=== PATIENT | female | born 1950 | race Caucasian/White ===

== ENCOUNTER 2017-11-15 13:34 | Inpatient (IN) | payer OTHER ==
[2017-11-15 16:18] VITALS: BMI 24.7
--- NOTE | 2017-11-15 17:42 | HP ---
COWS - Scale Resting Pulse: 0= [place] 80 or Below Sweatin= Chills/Flushing Restless Observation: 1= Difficult to Sit Still Pupil Size: 1= Pupils >than Normal Bone or Joint Aches: 1= Mild Discomfort Runny Nose/ Eye Tearin= Nasal Congestion GI Upset > 30mins: 2= Nausea/Diarrhea Tremor Observation: 1= Tremor [place], Not Seen Yawning Observation: 1= 1-2x During Session Anxiety or Irritability: 2=Irritable/Anxious Goose Flesh Skin: 3=Piloerection COWS Score: 14 Admission [facility] Chief Complaint: heroin withdrawal sx Allergies/Adverse Reactions: Allergies Allergy/AdvReac Type Severity Reaction Status Date / Time No Known Allergies Allergy Verified 11/15/17 17:26 History of Present Illness: 67 yo f wit h/o herion use disorder admitted for [facility] detoxification because fo heroin withdrawl sx. PMHx htn on meds, no si at this time, no h/o seizures, no DTs no other illicit or alcohol use. Exam Limitations: No Limitations - Ebola screening Have you traveled outside of the country in the last 21 days: No (N) Have you had contact with anyone from an Ebola affected area: No Have you been sick,other than usual withdrawal symptoms: No Do you have a fever: No - Review of Systems Constitutional: Chills, Diaphoresis, Night Sweats, Changes in sleep, Unintentional Wgt. Loss EENT: reports: Tearing, Nose Congestion Respiratory: reports: No Symptoms reported Cardiac: reports: No Symptoms Reported GI: reports: Constipated, Nausea, Poor Appetite, Poor Fluid Intake, Indigestion , Abdominal cramping : reports: No Symptoms Reported Musculoskeletal: reports: Back Pain, Joint Pain (arthritis and withdrawal s), Muscle Pain Integumentary: reports: Flushing, Sweating Neuro: reports: Headache, Numbness, Tingling, Tremors Endocrine: reports: Increased Thirst Hematology: reports: No Symptoms Reported Psychiatric: reports: Judgement Intact, Mood/Affect Appropiate, Orientated x3, Anxious, Depressed Other Systems: Reviewed and Negative Patient History - Patient Medical History Hx Anemia: No Hx Asthma: No Hx Chronic Obstructive Pulmonary Disease (COPD): No Hx Cancer: No Hx Cardiac Disorders: No Hx Congestive Heart Failure: No Hx Hypertension: Yes Hx Hypercholesterolemia: No Hx Pacemaker: No HX Cerebrovascular Accident: No Hx Seizures: No Hx Dementia: No Hx Diabetes: No Hx Gastrointestinal Disorders: No Hx Liver Disease: No Hx Genitourinary Disorders: No Hx Sexually Transmitted Disorders: No Hx Renal Disease (ESRD): No Hx Thyroid Disease: No Hx Human Immunodeficiency Virus (HIV): No Hx Hepatitis C: No Hx Depression: Yes Hx Suicide Attempt: No (no SI) Hx Bipolar Disorder: No Hx Schizophrenia: No - Patient Surgical History Past Surgical History: No Hx Neurologic Surgery: No Hx Cataract Extraction: No Hx Cardiac Surgery: No Hx Lung Surgery: No Hx Breast Surgery: No Hx Breast Biopsy: No Hx Abdominal Surgery: No Hx Appendectomy: No Hx Cholecystectomy: No Hx Genitourinary Surgery: No Hx Section: No Hx Orthopedic Surgery: No Hx Hysterectomy: No Anesthesia Reaction: No - PPD History Previous Implant?: Yes Documented Results: Negative w/o proof Implanted On Prior R Admission?: No PPD to be Administered?: Yes - Reproductive History Patient is a Female of Child Bearing Age (11 -55 yrs old): No Patient : No - Smoking Cessation Smoking history: Current every day smoker Have you smoked in the past 12 months: Yes Aproximately how many cigarettes per day: 30 Hx Chewing Tobacco Use: No Initiated information on smoking cessation: Yes 'Breaking Loose' booklet given: 11/15/17 - Substance & Tx. History Hx Alcohol Use: No Hx Substance Use: Yes Substance Use Type: Heroin Hx Substance Use Treatment: Yes (detox 17 years ago, sober x17 years) - Substances Abused Heroin Route: Inhalation Frequency: Daily Amount used: 10 bags Age of first use: 17 Date of Last Use: 11/15/17 Family Disease History - Family Disease History Family Disease History: Other: Mother (dementia) Admission Physical Exam BHS - Vital Signs Vital Signs: Vital Signs - 24 hr 11/15/17 16:13 Temperature 96.6 F L Pulse Rate 68 Respiratory 18 Rate Blood Pressure 136/74 - Physical General Appearance: Yes: Nourished, Appropriately Dressed, Disheveled, Mild Distress, Thin, Tremorous, Irritable, Sweating, Anxious HEENTM: Yes: EOMI, Hearing grossly Normal, Normocephalic, Normal Voice, GRICELDA, Pharynx Normal, Nasal Congestion, Rhinorrhea Respiratory: Yes: Within Normal Limits, Chest Non-Tender, Lungs Clear, Normal Breath Sounds, No Respiratory Distress, No Accessory Muscle Use Neck: Yes: Within Normal Limits, No masses,lesions,Nodules, Supple, Trachea in good position Breast: Yes: Breast Exam Deferred Cardiology: Yes: Within Normal Limits, Regular Rhythm, Regular Rate, S1, S2 Abdominal: Yes: Within Normal Limits, Normal Bowel Sounds, Non Tender, Flat, Increased Bowel Sounds Genitourinary: Yes: Within Normal Limits Back: Yes: Within Normal Limits, Normal Inspection Musculoskeletal: Yes: full range of Motion, Gait Steady, Pelvis Stable, Back pain, Muscle Pain Extremities: Yes: Normal Capillary Refill, Normal Inspection, Normal Range of Motion, Tremors Neurological: Yes: pole incisor operator II-XII NML intact, Fully Oriented, Alert, Motor Strength 5/5, Normal Response, Depressed Affect Integumentary: Yes: Normal Color, Warm, Diaphoresis, Moist Lymphatic: Yes: Within Normal Limits - Addiitonal Findings: rose sx - Diagnostic (1) Anxiety Current Visit: Yes Status: Acute (2) Overdose Current Visit: Yes Status: Acute (3) Dehydration Current Visit: Yes Status: Acute (4) Depression Current Visit: Yes Status: Acute (5) Essential hypertension Current Visit: Yes Status: Acute (6) Insomnia Current Visit: Yes Status: Acute (7) Opioid dependence with withdrawal Current Visit: Yes Status: Acute Cleared for Admission [facility] - Detox or Rehab [facility] Level of Care: Medically Managed Detox Regimen/Protocol: Methadone [facility] Breath Alcohol Content Breath Alcohol Content: 0 Urine Pregancy Test - Result Urine Test Results: Negative- NO Line Present Urine Drug Screen - Results Drug Screen Negative: No Urine Drug Screen Results: OPI-Opiates, OXY-Oxycodone
[2017-11-15] MEDS ORDERED: guaiFENesin/D-METHORPHAN HB 10 ML UNIT-DOSE CUPS PO PRN (17:47)
[2017-11-15] MEDS ORDERED: MAG HYDROX/AL HYDROX/SIMETH 30 ML UNIT-DOSE CUP PO PRN (17:47)
[2017-11-15] MEDS ORDERED: NICOTINE POLACRILEX 4 MG GUM BUC PRN (17:47)
[2017-11-15] MEDS ORDERED: MAGNESIUM HYDROX 2400MG/30ML ORAL SUSPENSION 30 ML CUP PO PRN (17:47)
[2017-11-15] MEDS ORDERED: P-EPHED 60MG/TRIPROLIDI 2.5MG TABLET PO PRN (17:47)
[2017-11-15] MEDS ORDERED: MENTHOL/PHENOL 1 EACH UD MM PRN (17:47)
[2017-11-15] MEDS ORDERED: MAGNESIUM CITRATE 300 ML BOTTLE PO PRN (17:47)
[2017-11-15] MEDS ORDERED: LOPERAMIDE HCL 2 MG CAPSULE PO PRN (17:47)
[2017-11-15] MEDS ORDERED: METHADONE HCL 10 MG TABLET (FOR DETOX USE ONLY) PO ONE ×2 (18:00→23:00)
[2017-11-15] MEDS: NICOTINE 21 MG/24 HOURS TOPICAL PATCH TD SCH (19:50)
[2017-11-15] MEDS: THIAMINE HCL 100 MG TABLET (FP) PO SCH (22:18)
[2017-11-15] MEDS: DOCUSATE SODIUM 100 MG CAPSULE (FP) PO SCH (22:18)
[2017-11-15] MEDS: diazePAM 5 MG TABLET PO PRN (22:19)
[2017-11-15 23:44] LABS: URINE APPEARANCE CLEAR; URINE BILIRUBIN NEGATIVE (NEGATIVE); URINE BLOOD NEGATIVE (NEGATIVE); URINE COLOR YELLOW; URINE GLUCOSE (UA) NEGATIVE (NEGATIVE); URINE KETONE NEGATIVE (NEGATIVE); URINE LEUK ESTERASE TRACE (NEGATIVE); URINE NITRITE NEGATIVE (NEGATIVE); URINE PROTEIN NEGATIVE (NEGATIVE); URINE UROBILINOGEN NEGATIVE mg/dL (0.2-1.0)
[2017-11-15 23:51] LABS: EPI CELLS FEW /HPF (FEW); URINE BACTERIA RARE /hpf (NONE SEEN); URINE MUCUS RARE
--- NOTE | 2017-11-16 07:43 | CONSULT ---
[facility] Psychiatric Consult - Data Date of interview: 11/16/17 Admission source: [facility] Identifying data: This is 67 years old female with no pst psychiatric hospitalization history, history of depression and anxiety , intoxicated with: Opioids Substance Abuse History: - Smoking Cessation. Smoking history: Current every day smoker. Have you smoked in the past 12 months: Yes. Aproximately how many cigarettes per day: 30. Hx Chewing Tobacco Use: No. Initiated information on smoking cessation: Yes. 'Breaking Loose' booklet given: 11/15/17. - Substance & Tx. History. Hx Alcohol Use: No. Hx Substance Use: Yes. Substance Use Type : Heroin. Hx Substance Use Treatment: Yes (detox 17 years ago, sober x17 years) . - Substances Abused. Heroin. Route: Inhalation. Frequency: Daily. Amount used: 10 bags. Age of first use: 17. Date of Last Use: 11/15/17 Medical History: HTN Psychiatric History: As per computer there is a history of anxiety and depression, patient reports not taking psychiatric medications prior to admission Physical/Sexual Abuse/Trauma History: Denies Additional Comment: Observation. Detox Unit Care Protocol Mental Status Exam - Mental Status Exam Alert and Oriented to: Person Cognitive Function: Fair Patient Appearance: Well Groomed Mood: Apprehensive Affect: Mood Congruent Patient Behavior: Cooperative Speech Pattern: Appropriate Voice Loudness: Normal Thought Process: Goal Oriented Thought Disorder: Being Controlled Hallucinations: Denies Suicidal Ideation: Denies Homicidal Ideation: Denies Insight/Judgement: Fair Sleep: Difficulty falling asleep Appetite: Weight loss Muscle strength/Tone: Normal Gait/Station: Normal Additional Comments: Observation. Detox Unit Care Protocol Psychiatric Findings - Problem List ([place] 1, 2,3) (1) Opioid-induced anxiety disorder Current Visit: Yes Status: Acute (2) Anxiety Current Visit: Yes Status: Acute (3) Depression Current Visit: Yes Status: Acute (4) Opioid dependence with withdrawal Current Visit: Yes Status: Suspected - Initial Treatment Plan Initial Treatment Plan: Observation. Detox Unit Care Protocol
[2017-11-16] MEDS ORDERED: METHADONE HCL 10 MG TABLET (FOR DETOX USE ONLY) PO ONE (10:00)
[2017-11-16 10:13] LABS: HEMATOCRIT 41.8 % (32.4-45.2); HEMOGLOBIN 13.7 GM/dL (10.7-15.3); MCH 31.5 pg (25.7-33.7); MCHC 32.8 g/dl (32.0-36.0); MEAN CELL VOLUME 95.9 fl (80-96); MEAN PLT VOLUME 8.8 fl (7.5-11.1); PLATELET COUNT 207 K/MM3 (134-434); RBC 4.36 M/mm3 (3.60-5.2); WHITE BLOOD COUNT 3.1 K/mm3 (4.0-10.0)
[2017-11-16] MEDS: PRENATAL VITAMINS W/ FOLIC ACID TABLET (FP) PO SCH (10:29)
[2017-11-16] MEDS: LOSARTAN POTASSIUM 25 MG TABLET PO SCH (10:29)
[2017-11-16] MEDS: NICOTINE 21 MG/24 HOURS TOPICAL PATCH TD SCH (10:29)
[2017-11-16 10:41] LABS: CHLORIDE 105 mmol/L (98-107); SODIUM 141 mmol/L (136-145)
[2017-11-16 10:48] LABS: ALBUMIN 3.7 g/dl (3.4-5.0); ALK PHOS 73 U/L (45-117); ANION GAP 4 (8-16); BILIRUBIN,TOTAL 0.9 mg/dL (0.2-1.0); BLOOD UREA NITROGEN 14 mg/dL (7-18); CALCIUM 8.8 mg/dL (8.5-10.1); CO2 32 mmol/L (21-32); CREATININE 0.7 mg/dL (0.55-1.02); GLUCOSE,RANDOM 87 mg/dL (74-106); SGOT/AST 13 U/L (15-37); SGPT/ALT 18 U/L (12-78); TOT PROT 6.7 g/dl (6.4-8.2)
--- NOTE | 2017-11-16 11:04 | EKG ---
Test Reason : Blood Pressure : / mmHG Vent. Rate : 067 BPM Atrial Rate : 067 BPM P-R Int : 174 ms QRS Dur : 078 ms QT Int : 416 ms P-R-T Axes : 071 029 048 degrees QTc Int : 439 ms POOR DATA QUALITY, INTERPRETATION MAY BE ADVERSELY AFFECTED NORMAL SINUS RHYTHM NORMAL ECG NO PREVIOUS ECGS AVAILABLE Confirmed by SHAINA BARRERA MD ([id number]) on 11/16/2017 11:04:46 AM Referred By: Confirmed By:SHAINA BARRERA MD
--- NOTE | 2017-11-16 11:11 | PN ---
BHS COWS - Scale Resting Pulse: 0= [place] 80 or Below Sweatin= Chills/Flushing Restless Observation: 3= Extraneous Movement Pupil Size: 1= Pupils >than Normal Bone or Joint Aches: 2= Severe Diffuse Aches Runny Nose/ Eye Tearin= Runny Nose/Eyes GI Upset > 30mins: 2= Nausea/Diarrhea Tremor Observation of Outstretched Hands: 2= Slight Tremor Visible Yawning Observation: 1= 1-2x During Session Anxiety or Irritability: 2=Irritable/Anxious Goose Flesh Skin: 0=Smooth Skin COWS Score: 16 S Progress Note (SOAP) Subjective: ALERT,IRRITABLE,ANXIOUS,INTERRUPTED SLEEP,PAIN IN THE BODY,BACK, Objective: 11/16/17 11:08 Vital Signs Temperature 97.7 F 11/16/17 10:00 Pulse Rate 66 11/16/17 10:00 Respiratory Rate 18 11/16/17 10:00 Blood Pressure 153/82 11/16/17 10:00 O2 Sat by Pulse Oximetry (%) 11/16/17 11:08 EKG NSR,NORMAL Laboratory Last Values WBC 3.1 K/mm3 (4.0-10.0) L 11/16/17 07:00 RBC 4.36 M/mm3 (3.60-5.2) 11/16/17 07:00 Hgb 13.7 GM/dL (10.7-15.3) 11/16/17 07:00 Hct 41.8 % (32.4-45.2) 11/16/17 07:00 MCV 95.9 fl (80-96) 11/16/17 07:00 MCH 31.5 pg (25.7-33.7) 11/16/17 07:00 MCHC 32.8 g/dl (32.0-36.0) 11/16/17 07:00 RDW 13.0 % (11.6-15.6) 11/16/17 07:00 Plt Count 207 K/MM3 (134-434) 11/16/17 07:00 MPV 8.8 fl (7.5-11.1) 11/16/17 07:00 Sodium 141 mmol/L (136-145) 11/16/17 07:00 Potassium 4.0 mmol/L (3.5-5.1) 11/16/17 07:00 Chloride 105 mmol/L (98-107) 11/16/17 07:00 Carbon Dioxide 32 mmol/L (21-32) 11/16/17 07:00 Anion Gap 4 (8-16) L 11/16/17 07:00 BUN 14 mg/dL (7-18) 11/16/17 07:00 Creatinine 0.7 mg/dL (0.55-1.02) 11/16/17 07:00 Creat Clearance w eGFR > 60 (>60) 11/16/17 07:00 Random Glucose 87 mg/dL (74-106) 11/16/17 07:00 Calcium 8.8 mg/dL (8.5-10.1) 11/16/17 07:00 Total Bilirubin 0.9 mg/dL (0.2-1.0) 11/16/17 07:00 AST 13 U/L (15-37) L 11/16/17 07:00 ALT 18 U/L (12-78) 11/16/17 07:00 Alkaline Phosphatase 73 U/L (45-117) 11/16/17 07:00 Total Protein 6.7 g/dl (6.4-8.2) 11/16/17 07:00 Albumin 3.7 g/dl (3.4-5.0) 11/16/17 07:00 Urine Color Yellow 11/15/17 23:25 Urine Appearance Clear 11/15/17 23:25 Urine pH 5.0 (5.0-8.0) 11/15/17 23:25 Ur Specific [place] 1.024 (1.001-1.035) 11/15/17 23:25 Urine Protein Negative (NEGATIVE) 11/15/17 23:25 Urine Glucose (UA) Negative (NEGATIVE) 11/15/17 23:25 Urine Ketones Negative (NEGATIVE) 11/15/17 23:25 Urine Blood Negative (NEGATIVE) 11/15/17 23:25 Urine Nitrite Negative (NEGATIVE) 11/15/17 23:25 Urine Bilirubin Negative (NEGATIVE) 11/15/17 23:25 Urine Urobilinogen Negative mg/dL (0.2-1.0) 11/15/17 23:25 Ur Leukocyte Esterase Trace (NEGATIVE) 11/15/17 23:25 Urine WBC (Auto) 1 /hpf (3-5) 11/15/17 23:25 Urine RBC (Auto) 1 /hpf (0-3) 11/15/17 23:25 Ur Epithelial Cells Few /HPF (FEW) 11/15/17 23:25 Urine Bacteria Rare /hpf (NONE SEEN) 11/15/17 23:25 Urine Mucus Rare 11/15/17 23:25 11/16/17 11:11 LAB PENDING Assessment: 11/16/17 11:11 WITHDRAWAL SYMPTOM Plan: CONTINUE DETOX
[2017-11-16 11:49] LABS: SICKLE CELL SCREEN NEGATIVE (NEGATIVE)
[2017-11-16] MEDS: IBUPROFEN 400 MG TABLET (FP) PO PRN (17:16)
[2017-11-16] MEDS: diazePAM 5 MG TABLET PO PRN (20:29)
[2017-11-16] MEDS: DOCUSATE SODIUM 100 MG CAPSULE (FP) PO SCH (22:23)
[2017-11-16] MEDS: THIAMINE HCL 100 MG TABLET (FP) PO SCH (22:23)
[2017-11-17] MEDS: ACETAMINOPHEN 325 MG TABLET (FP) PO PRN ×2 (07:42→20:51)
[2017-11-17] MEDS ORDERED: cloNIDine HCL 0.1 MG TABLET PO ONE (08:26)
[2017-11-17] MEDS ORDERED: CYCLOBENZAPRINE HCL 10 MG TABLET (FP) PO ONE (08:26)
[2017-11-17] MEDS: hydrOXYzine PAMOATE 50 MG CAPSULE (FP) PO PRN (08:35)
[2017-11-17] MEDS: diazePAM 5 MG TABLET PO PRN ×2 (08:35→22:28)
[2017-11-17] MEDS ORDERED: cloNIDine HCL 0.1 MG TABLET PO SCH (10:00)
[2017-11-17] MEDS ORDERED: METHADONE HCL 5 MG TABLET (FOR DETOX USE ONLY) PO ONE (10:00)
[2017-11-17] MEDS: PRENATAL VITAMINS W/ FOLIC ACID TABLET (FP) PO SCH (10:25)
[2017-11-17] MEDS: NICOTINE 21 MG/24 HOURS TOPICAL PATCH TD SCH (10:25)
[2017-11-17] MEDS: LOSARTAN POTASSIUM 25 MG TABLET PO SCH (10:25)
--- NOTE | 2017-11-17 12:07 | PN ---
BHS COWS - Scale Resting Pulse: 0= [place] 80 or Below Sweatin= Chills/Flushing Restless Observation: 3= Extraneous Movement Pupil Size: 1= Pupils >than Normal Bone or Joint Aches: 2= Severe Diffuse Aches Runny Nose/ Eye Tearin= Runny Nose/Eyes GI Upset > 30mins: 2= Nausea/Diarrhea Tremor Observation of Outstretched Hands: 2= Slight Tremor Visible Yawning Observation: 1= 1-2x During Session Anxiety or Irritability: 2=Irritable/Anxious Goose Flesh Skin: 0=Smooth Skin COWS Score: 16 S Progress Note (SOAP) Subjective: ALERT,IRRITABLE,ANXIOUS,INTERRUPTED SLEEP,TREMOR,PAIN IN THE BODY AND BACK Objective: 11/17/17 12:06 Vital Signs Temperature 98.1 F 11/17/17 09:56 Pulse Rate 73 11/17/17 09:56 Respiratory Rate 18 11/17/17 09:56 Blood Pressure 163/106 11/17/17 09:56 O2 Sat by Pulse Oximetry (%) Laboratory Last Values WBC 3.1 K/mm3 (4.0-10.0) L 11/16/17 07:00 RBC 4.36 M/mm3 (3.60-5.2) 11/16/17 07:00 Hgb 13.7 GM/dL (10.7-15.3) 11/16/17 07:00 Hct 41.8 % (32.4-45.2) 11/16/17 07:00 MCV 95.9 fl (80-96) 11/16/17 07:00 MCH 31.5 pg (25.7-33.7) 11/16/17 07:00 MCHC 32.8 g/dl (32.0-36.0) 11/16/17 07:00 RDW 13.0 % (11.6-15.6) 11/16/17 07:00 Plt Count 207 K/MM3 (134-434) 11/16/17 07:00 MPV 8.8 fl (7.5-11.1) 11/16/17 07:00 Sickle Cell Screen Negative (NEGATIVE) 11/16/17 07:00 Sodium 141 mmol/L (136-145) 11/16/17 07:00 Potassium 4.0 mmol/L (3.5-5.1) 11/16/17 07:00 Chloride 105 mmol/L (98-107) 11/16/17 07:00 Carbon Dioxide 32 mmol/L (21-32) 11/16/17 07:00 Anion Gap 4 (8-16) L 11/16/17 07:00 BUN 14 mg/dL (7-18) 11/16/17 07:00 Creatinine 0.7 mg/dL (0.55-1.02) 11/16/17 07:00 Creat Clearance w eGFR > 60 (>60) 11/16/17 07:00 Random Glucose 87 mg/dL (74-106) 11/16/17 07:00 Calcium 8.8 mg/dL (8.5-10.1) 11/16/17 07:00 Total Bilirubin 0.9 mg/dL (0.2-1.0) 11/16/17 07:00 AST 13 U/L (15-37) L 11/16/17 07:00 ALT 18 U/L (12-78) 11/16/17 07:00 Alkaline Phosphatase 73 U/L (45-117) 11/16/17 07:00 Total Protein 6.7 g/dl (6.4-8.2) 11/16/17 07:00 Albumin 3.7 g/dl (3.4-5.0) 11/16/17 07:00 Urine Color Yellow 11/15/17 23:25 Urine Appearance Clear 11/15/17 23:25 Urine pH 5.0 (5.0-8.0) 11/15/17 23:25 Ur Specific [place] 1.024 (1.001-1.035) 11/15/17 23:25 Urine Protein Negative (NEGATIVE) 11/15/17 23:25 Urine Glucose (UA) Negative (NEGATIVE) 11/15/17 23:25 Urine Ketones Negative (NEGATIVE) 11/15/17 23:25 Urine Blood Negative (NEGATIVE) 11/15/17 23:25 Urine Nitrite Negative (NEGATIVE) 11/15/17 23:25 Urine Bilirubin Negative (NEGATIVE) 11/15/17 23:25 Urine Urobilinogen Negative mg/dL (0.2-1.0) 11/15/17 23:25 Ur Leukocyte Esterase Trace (NEGATIVE) 11/15/17 23:25 Urine WBC (Auto) 1 /hpf (3-5) 11/15/17 23:25 Urine RBC (Auto) 1 /hpf (0-3) 11/15/17 23:25 Ur Epithelial Cells Few /HPF (FEW) 11/15/17 23:25 Urine Bacteria Rare /hpf (NONE SEEN) 11/15/17 23:25 Urine Mucus Rare 11/15/17 23:25 RPR Titer Nonreactive (NONREACTIVE) 11/16/17 07:00 Hepatitis C Antibody <0.1 s/co ratio (0.0-0.9) 11/15/17 07:00 Assessment: 11/17/17 12:07 WITHDRAWAL SYMPTOM Plan: CONTINUE DETOX
[2017-11-17] MEDS: IBUPROFEN 400 MG TABLET (FP) PO PRN (17:59)
[2017-11-17] MEDS ORDERED: cloNIDine HCL 0.1 MG TABLET PO PRN (20:45)
[2017-11-17] MEDS: THIAMINE HCL 100 MG TABLET (FP) PO SCH (22:24)
[2017-11-17] MEDS: DOCUSATE SODIUM 100 MG CAPSULE (FP) PO SCH (22:25)
[2017-11-18] MEDS: hydrOXYzine PAMOATE 50 MG CAPSULE (FP) PO PRN ×2 (01:47→21:00)
[2017-11-18] MEDS: diazePAM 5 MG TABLET PO PRN ×2 (06:53→17:33)
[2017-11-18] MEDS ORDERED: METHADONE HCL 5 MG TABLET (FOR DETOX USE ONLY) PO ONE (10:00)
--- NOTE | 2017-11-18 10:21 | PN ---
S Progress Note (SOAP) Subjective: ALERT,IRRITABLE,ANXIOUS,INTERRUPTED SLEEP,PAIN IN THE BODY,BACK Objective: 11/18/17 10:20 Vital Signs Temperature 97.5 F L 11/18/17 10:03 Pulse Rate 87 11/18/17 10:03 Respiratory Rate 20 11/18/17 10:03 Blood Pressure 157/112 11/18/17 10:03 O2 Sat by Pulse Oximetry (%) Assessment: 11/18/17 10:20 WITHDRAWAL SYMPTOM Plan: CONTINUE DETOX,BP MONITORING
[2017-11-18] MEDS: LOSARTAN POTASSIUM 25 MG TABLET PO SCH (10:26)
[2017-11-18] MEDS: NICOTINE 21 MG/24 HOURS TOPICAL PATCH TD SCH (10:27)
[2017-11-18] MEDS: PRENATAL VITAMINS W/ FOLIC ACID TABLET (FP) PO SCH (10:28)
[2017-11-18] MEDS: cloNIDine HCL 0.1 MG TABLET PO SCH ×2 (10:40→21:00)
[2017-11-18] MEDS: DOCUSATE SODIUM 100 MG CAPSULE (FP) PO SCH (21:00)
[2017-11-18] MEDS: THIAMINE HCL 100 MG TABLET (FP) PO SCH (23:02)
[2017-11-19] MEDS ORDERED: METHADONE HCL 10 MG TABLET (FOR DETOX USE ONLY) PO ONE (10:00)
--- NOTE | 2017-11-19 10:29 | PN ---
S Progress Note (SOAP) Subjective: feeling better lest sweat, less anxiety, no joint aches, mild GI distress Objective: 11/19/17 10:28 Vital Signs Temperature 98.6 F 11/19/17 10:07 Pulse Rate 84 11/19/17 10:07 Respiratory Rate 16 11/19/17 10:07 Blood Pressure 146/109 11/19/17 10:07 O2 Sat by Pulse Oximetry (%) Laboratory Last Values WBC 3.1 K/mm3 (4.0-10.0) L 11/16/17 07:00 RBC 4.36 M/mm3 (3.60-5.2) 11/16/17 07:00 Hgb 13.7 GM/dL (10.7-15.3) 11/16/17 07:00 Hct 41.8 % (32.4-45.2) 11/16/17 07:00 MCV 95.9 fl (80-96) 11/16/17 07:00 MCH 31.5 pg (25.7-33.7) 11/16/17 07:00 MCHC 32.8 g/dl (32.0-36.0) 11/16/17 07:00 RDW 13.0 % (11.6-15.6) 11/16/17 07:00 Plt Count 207 K/MM3 (134-434) 11/16/17 07:00 MPV 8.8 fl (7.5-11.1) 11/16/17 07:00 Sickle Cell Screen Negative (NEGATIVE) 11/16/17 07:00 Sodium 141 mmol/L (136-145) 11/16/17 07:00 Potassium 4.0 mmol/L (3.5-5.1) 11/16/17 07:00 Chloride 105 mmol/L (98-107) 11/16/17 07:00 Carbon Dioxide 32 mmol/L (21-32) 11/16/17 07:00 Anion Gap 4 (8-16) L 11/16/17 07:00 BUN 14 mg/dL (7-18) 11/16/17 07:00 Creatinine 0.7 mg/dL (0.55-1.02) 11/16/17 07:00 Creat Clearance w eGFR > 60 (>60) 11/16/17 07:00 Random Glucose 87 mg/dL (74-106) 11/16/17 07:00 Calcium 8.8 mg/dL (8.5-10.1) 11/16/17 07:00 Total Bilirubin 0.9 mg/dL (0.2-1.0) 11/16/17 07:00 AST 13 U/L (15-37) L 11/16/17 07:00 ALT 18 U/L (12-78) 11/16/17 07:00 Alkaline Phosphatase 73 U/L (45-117) 11/16/17 07:00 Total Protein 6.7 g/dl (6.4-8.2) 11/16/17 07:00 Albumin 3.7 g/dl (3.4-5.0) 11/16/17 07:00 Urine Color Yellow 11/15/17 23:25 Urine Appearance Clear 11/15/17 23:25 Urine pH 5.0 (5.0-8.0) 11/15/17 23:25 Ur Specific [place] 1.024 (1.001-1.035) 11/15/17 23:25 Urine Protein Negative (NEGATIVE) 11/15/17 23:25 Urine Glucose (UA) Negative (NEGATIVE) 11/15/17 23:25 Urine Ketones Negative (NEGATIVE) 11/15/17 23:25 Urine Blood Negative (NEGATIVE) 11/15/17 23:25 Urine Nitrite Negative (NEGATIVE) 11/15/17 23:25 Urine Bilirubin Negative (NEGATIVE) 11/15/17 23:25 Urine Urobilinogen Negative mg/dL (0.2-1.0) 11/15/17 23:25 Ur Leukocyte Esterase Trace (NEGATIVE) 11/15/17 23:25 Urine WBC (Auto) 1 /hpf (3-5) 11/15/17 23:25 Urine RBC (Auto) 1 /hpf (0-3) 11/15/17 23:25 Ur Epithelial Cells Few /HPF (FEW) 11/15/17 23:25 Urine Bacteria Rare /hpf (NONE SEEN) 11/15/17 23:25 Urine Mucus Rare 11/15/17 23:25 RPR Titer Nonreactive (NONREACTIVE) 11/16/17 07:00 Hepatitis C Antibody <0.1 s/co ratio (0.0-0.9) 11/15/17 07:00 lab noted Assessment: 11/19/17 10:29 withdrawal sx Plan: continue detox
[2017-11-19] MEDS: LOSARTAN POTASSIUM 25 MG TABLET PO SCH (10:32)
[2017-11-19] MEDS: cloNIDine HCL 0.1 MG TABLET PO SCH ×2 (10:32→22:30)
[2017-11-19] MEDS: hydrOXYzine PAMOATE 50 MG CAPSULE (FP) PO PRN ×2 (10:32→17:41)
[2017-11-19] MEDS: NICOTINE 21 MG/24 HOURS TOPICAL PATCH TD SCH (10:33)
[2017-11-19] MEDS: PRENATAL VITAMINS W/ FOLIC ACID TABLET (FP) PO SCH (10:33)
[2017-11-19] MEDS ORDERED: cloNIDine HCL 0.1 MG TABLET PO ONE (18:05)
[2017-11-19] MEDS: THIAMINE HCL 100 MG TABLET (FP) PO SCH (22:30)
[2017-11-19] MEDS: DOCUSATE SODIUM 100 MG CAPSULE (FP) PO SCH (23:18)
[2017-11-20] MEDS ORDERED: METHADONE HCL 5 MG TABLET (FOR DETOX USE ONLY) PO ONE (06:00)
--- NOTE | 2017-11-20 08:36 | DS ---
[facility] Detox Discharge Summary Admission Date: 11/15/17 Discharge Date: 11/20/17 - History Present History: Opioid Dependence Additional Comments: FOLLOW UP WITH AFTER CARE PROGRAM ARRANGEMENT Pertinent Past History: ESSENTIAL HYPERTENSION INSOMNIA - Physical Exam Results Vital Signs: Vital Signs Temperature 96.3 F L 11/20/17 06:12 Pulse Rate 68 11/20/17 06:12 Respiratory Rate 18 11/20/17 06:12 Blood Pressure 127/70 11/20/17 06:12 O2 Sat by Pulse Oximetry (%) Pertinent Admission Physical Exam Findings: WITHDRAWAL SYMPTOM AND FINDING - Treatment Hospital Course: Detox Protocol Followed, Detoxed Safely, Responded well, Discharged Condition Good Patient has Accepted a Rehab Referral to: DECLINED - Medication Discharge Medications: Ambulatory Orders Losartan Potassium [Cozaar -] 25 mg PO DAILY 11/15/17 Propranolol HCl [Propranolol HCl ER] 1 cap PO DAILY 11/17/17 - Diagnosis (1) Opioid dependence with withdrawal Current Visit: Yes Status: Suspected (2) Essential hypertension Current Visit: Yes Status: Acute (3) Insomnia Current Visit: Yes Status: Acute - AMA Did Patient Leave Against Medical Advice: No
[2017-11-20 10:08] VITALS: BP 117/83; PULSE 91; TEMP 98.2
== END 2017-11-20 09:34 | disposition home or self-care (01) | DRG 897 ==
LOC: YASAS 13:34 → Y6N 17:35 → EDSEX 17:35
PROVIDERS: ADMIT Internal Medicine; ATTEND Internal Medicine
PROC: HZ2ZZZZ Detoxification Services for Substance Abuse Treatment (ICD-10-PCS; principal; 2017-11-15)
DX: F11.23 Opioid dependence with withdrawal (principal); F11.288 Opioid dependence with other opioid-induced disorder; F19.20 Other psychoactive substance dependence, uncomplicated; F41.9 Anxiety disorder, unspecified; F32.9 Major depressive disorder, single episode, unspecified; I10 Essential (primary) hypertension; G47.00 Insomnia, unspecified; E86.0 Dehydration
CPT/HCPCS: 36415; 80053; 81003; 81015; 85027; 85660; 86593; 86803; 93005; 93010; J0735